=== PATIENT | female | born 1990 | race African-American/Black ===

== ENCOUNTER 2017-01-14 23:00 | Emergency (ER) | payer SELFPAY ==
[~2017-01-14] VITALS: Ht 170.2 cm; Wt 78.0 kg
[2017-01-15] MEDS ORDERED: ONDANSETRON HCL 4MG/2ML VIAL IV ONE
[2017-01-15] MEDS ORDERED: SODIUM CHLORIDE 0.9% 1,000 ML IV ONE
[2017-01-15] MEDS ORDERED: ACETAMINOPHEN 325MG TABLET PO ONE
[2017-01-15 00:37] LABS: BASOPHILS % 0.7 % (0.0-2.0); EOSINOPHILS % 4.4 % (0.0-5.0); HEMATOCRIT. 32.9 % (36.0-48.0); HEMOGLOBIN. 11.1 g/dL (12.0-16.0); LYMPHOCYTES % 31.1 % (20.0-50.0); MEAN CORPUSCULAR HEMOGLOBIN 29.5 pg (28.0-32.0); MEAN CORPUSCULAR VOLUME 87.5 fL (81.0-99.0); MONOCYTES % 6.1 % (2.0-8.0); NEUTROPHILS % 57.7 % (40.0-76.0); PLATELET 255 x1000/uL (130-400); RED BLOOD CELL COUNT 3.76 mill/uL (4.2-5.4); RED CELL DISTRIBUTION WIDTH 13.5 % (11.6-14.6)
[2017-01-15 00:39] LABS: CHLORIDE 107 mEq/L (98-107)
[2017-01-15 00:55] LABS: CARBON DIOXIDE 24 mEq/L (21-32)
[2017-01-15 01:03] LABS: B-HCG QUANTITATIVE 35163 mIU/mL (<3)
[2017-01-15 01:45] VITALS: BP 118/62
== END 2017-01-15 02:42 | disposition home or self-care (01) ==
LOC: ER 23:22
DX: O20.9 Hemorrhage in early pregnancy, unspecified (principal); O21.9 Vomiting of pregnancy, unspecified; O26.891 Other specified pregnancy related conditions, first trimester; R10.32 Left lower quadrant pain; R19.7 Diarrhea, unspecified; J45.909 Unspecified asthma, uncomplicated; I10 Essential (primary) hypertension; Z3A.13 13 weeks gestation of pregnancy
CPT/HCPCS: 36415; 76801; 76817; 80048; 84702; 85025; 86850; 86900; 86901; 96361; 96374; 99285; J2405; J7030; Z7610